=== PATIENT | female | born 1975 ===

== ENCOUNTER 2021-07-10 09:51 | Outpatient (CLI) | payer OTHER | END 2021-07-10 11:59 | disposition home or self-care (01) | LOC: SONOGRAMA 09:51 | PROVIDERS: ATTEND Pathology Anatomic Pathology & Clinical Pathology | DX: E04.2 Nontoxic multinodular goiter (principal) ==

== ENCOUNTER 2023-01-07 08:58 | Outpatient (CLI) | payer OTHER | END 2023-01-07 09:03 | disposition home or self-care (01) | LOC: SONOGRAMA 08:58 | PROVIDERS: ATTEND Pathology Anatomic Pathology & Clinical Pathology | DX: D34 Benign neoplasm of thyroid gland (principal); E04.9 Nontoxic goiter, unspecified ==